=== PATIENT | male | born 2000 | race Caucasian/White ===

== ENCOUNTER 2021-01-24 20:20 | Emergency (ER) | payer OTHER ==
[~2021-01-24] VITALS: Ht 160 cm; Wt 88.5 kg
[2021-01-24 21:15] VITALS: BP 138/89
== END 2021-01-24 21:16 | disposition home or self-care (01) ==
LOC: M.ERS 20:20
DX: S99.822A Other specified injuries of left foot, initial encounter (principal); W22.8XXA Striking against or struck by other objects, initial encounter; Y93.89 Activity, other specified; Y92.89 Other specified places as the place of occurrence of the external cause; Y99.8 Other external cause status